=== PATIENT | male | born 1975 | race African-American/Black ===

== ENCOUNTER 2023-11-22 08:47 | Emergency (ER) | payer BC, OTHER ==
[~2023-11-22] VITALS: Ht 182.9 cm; Wt 99.8 kg
[2023-11-22] MEDS ORDERED: CEFTRIAXONE 1 G VIAL IM ONE (09:00)
[2023-11-22] MEDS ORDERED: HYDROMORPHONE 1 MG/1 ML DISP.SYRIN IM ONE (09:00)
[2023-11-22] MEDS ORDERED: AMLO10TA59 PO (09:14)
[2023-11-22 09:41] LABS: CALCIUM 9.7 mg/dL (8.5-10.1); CARBON DIOXIDE 29 mmol/L (21-32); CHLORIDE 101 mmol/L (98-107); CREATININE 0.9 mg/dL (0.6-1.3); GLUCOSE 146 mg/dL (74-106); POTASSIUM 3.7 mmol/L (3.5-5.1); SODIUM SERUM 140 mmol/L (136-145); UREA NITROGEN, BLOOD 14 mg/dL (7-18)
[2023-11-22] MEDS ORDERED: CLONIDINE HCL 0.1 MG TABLET ONE (09:43)
[2023-11-22] MEDS: CLONIDINE HCL 0.1 MG TABLET PO ONE (09:45)
[2023-11-22 09:49] LABS: ALANINE AMINOTRANSFERASE 114 U/L (16-63); ALBUMIN 4.5 g/dL (3.4-5.0); ALKALINE PHOSPHATASE 103 U/L (50-136); ASPARTATE AMINOTRANSFERASE 116 U/L (15-37); BILIRUBIN,DIRECT 0.2 mg/dL (0.0-0.2); TOTAL PROTEIN, SERUM 8.3 g/dL (6.4-8.2)
[2023-11-22 10:18] LABS: BASOPHILS % (AUTO) 0.3 % (0.0-2.0); EOSINOPHILS # (AUTO) 0.1 K/uL (0.0-0.7); EOSINOPHILS % (AUTO) 1.9 % (0.0-7.0); HEMATOCRIT 45.9 % (36.7-47.1); HEMOGLOBIN 15.3 g/dL (12.5-16.3); LYMPHOCYTES # (AUTO) 0.9 K/uL (0.8-4.8); LYMPHOCYTES % (AUTO) 15.5 % (20.5-51.5); MEAN CORPUSCULAR HEMOGLOBIN 33.3 uug (23.8-33.4); MEAN CORPUSCULAR HGB CONC 33 g/dL (32.5-36.3); MEAN CORPUSCULAR VOLUME 99.7 fL (73.0-96.2); MONOCYTES # (AUTO) 0.5 K/uL (0.1-1.30); MONOCYTES % (AUTO) 8.6 % (0.0-11.0); NEUTROPHILS # (AUTO) 4.1 K/uL (1.8-8.9); NEUTROPHILS % (AUTO) 73.7 % (38.5-71.5); PLATELET COUNT (AUTO) 209 K/uL (152-348); RED CELL DISTRIBUTION WIDTH 13.3 % (12.1-16.2); WHITE BLOOD COUNT (AUTO) 5.6 K/uL (3.6-10.2)
[2023-11-22 10:21] LABS: DIFFERENTIAL COMMENT 1
[2023-11-22] MEDS: MAGNESIUM SULFATE/D5W 100 ML IV SCH (10:45)
[2023-11-22] MEDS ORDERED: FLAS1KIT2 TP (11:21)
[2023-11-22] MEDS ORDERED: FLAS1EAC2 TP (11:21)
[2023-11-22] MEDS ORDERED: hydrALAZINE HCL 20 MG/1 ML VIAL ONE (11:38)
[2023-11-22] MEDS ORDERED: MAGNESIUM SULFATE/D5W 100 ML ONE ×2 (11:38→13:09)
[2023-11-22] MEDS: hydrALAZINE HCL 20 MG/1 ML VIAL IV ONE (12:08)
[2023-11-22] MEDS ORDERED: CLON0.1T PO (13:36)
[2023-11-22 14:20] VITALS: BP 139/89; O2SAT 99
== END 2023-11-22 14:32 | disposition home or self-care (01) ==
LOC: ER 08:47
DX: I10 Essential (primary) hypertension (principal); R74.01 Elevation of levels of liver transaminase levels; R11.0 Nausea; Z79.899 Other long term (current) drug therapy
CPT/HCPCS: 99285; 96365; 96366; 71045; 80076; 80048; 82607; 83036; 83735; 85025; 84484; 36415; 93005; J3475 ×2; A4606; A4663; J0360

== ENCOUNTER 2024-07-20 15:13 | Emergency (ER) | payer BC ==
[~2024-07-20] VITALS: Ht 182.9 cm; Wt 104.3 kg
[~2024-07-20 15:13] MED LIST: AMLO10TA59 PO; CLON0.1T PO; FLAS1EAC2 TP; FLAS1KIT2 TP
[2024-07-20 16:21] VITALS: BP 136/82; O2SAT 96
== END 2024-07-20 16:21 | disposition home or self-care (01) ==
LOC: ER 15:13
DX: S16.1XXA Strain of muscle, fascia and tendon at neck level, initial encounter (principal); S50.01XA Contusion of right elbow, initial encounter; S50.11XA Contusion of right forearm, initial encounter; I10 Essential (primary) hypertension; Z87.19 Personal history of other diseases of the digestive system; V23.49XA Other motorcycle driver injured in collision with car, pick-up truck or van in traffic accident, initial encounter; Y93.89 Activity, other specified; Y92.488 Other paved roadways as the place of occurrence of the external cause; Y99.8 Other external cause status
CPT/HCPCS: 72125; 73020; 73070; 73090; A4606; A4663